=== PATIENT | female | born 1945 | race American Indian/Alaskan Native ===

== ENCOUNTER 2017-06-12 09:28 | Emergency (ER) | payer MEDICARE ==
[2017-06-12] MEDS ORDERED: PERCOCET 5/325 PO ONE (11:54)
--- NOTE | 2017-06-12 11:57 | Emergency Department Report ---
ED Back Pain/Injury HPI - General Chief Complaint: Back Pain/Injury Stated Complaint: BACK PAIN Source: patient, EMS Limitations: Physical Limitation - History of Present Illness Initial Comments: patient brought to er with low back pain, 03/11, with radiation to buttocks. patient has chronic back pain s/p surgery, ran out her percocet which usually helps her pain. she has an appointment next week to have percocet refill by hoang manzo MD Complaint: back pain -: Gradual Similar Symptoms Previously: Yes Place: home Radiation: buttocks Severity: mild Severity scale (0 -10): 4 Quality: sharp Consistency: intermittent Improves With: supine Worsens With: none Context: while lifting Associated Symptoms: denies other symptoms Treatments Prior to Arrival: prescription analgesics (home percocet) - Related Data Previous Rx's Medication Instructions Recorded Last Taken Type methOCARBAMOL [Robaxin TAB] 500 mg PO Q6H PRN #30 tablet 06/12/17 Unknown Rx Allergies Allergy/AdvReac Type Severity Reaction Status Date / Time No Known Allergies Allergy Unverified 06/12/17 09:48 ED Review of Systems ROS: Stated complaint: BACK PAIN Other details as noted in HPI Comment: All other systems reviewed and negative Endocrine: no symptoms reported Musculoskeletal: as per HPI, back pain ED Past Medical Hx - Past Medical History Previous Medical History?: Yes Hx Hypertension: Yes Additional medical history: high cholesterol - Surgical History Past Surgical History?: Yes Hx Breast Surgery: Yes (right breast) - Social History Smoking Status: Never Smoker Substance Use Type: None - Medications Home Medications: Home Medications Medication Instructions Recorded Confirmed Last Taken Type methOCARBAMOL [Robaxin TAB] 500 mg PO Q6H PRN #30 tablet 06/12/17 Unknown Rx ED Physical Exam - General Limitations: Physical Limitation General appearance: alert - Head Head exam: Present: atraumatic - Eye Eye exam: Present: normal appearance - ENT ENT exam: Present: normal exam - Neck Neck exam: Present: normal inspection - Respiratory Respiratory exam: Present: normal lung sounds bilaterally - Cardiovascular Cardiovascular Exam: Present: regular rate - GI/Abdominal GI/Abdominal exam: Present: soft - Rectal Rectal exam: Present: deferred - Extremities Exam Extremities exam: Present: normal inspection - Back Exam Back exam: Present: normal inspection - Neurological Exam Neurological exam: Present: alert, altered, oriented X3 - Psychiatric Psychiatric exam: Present: normal affect, normal mood - Skin Skin exam: Present: warm ED Course Vital Signs 06/12/17 06/12/17 06/12/17 11:30 11:35 11:41 Temperature Respiratory Rate Blood Pressure 148/89 148/89 O2 Sat by Pulse 97 97 97 Oximetry 06/12/17 06/12/17 06/12/17 11:45 11:51 11:55 Temperature Respiratory Rate Blood Pressure 139/82 139/82 139/82 O2 Sat by Pulse 98 97 98 Oximetry 06/12/17 12:07 Temperature 98.2 F Respiratory 16 Rate Blood Pressure O2 Sat by Pulse Oximetry - Reevaluation(s) Reevaluation #1: 06/12/17 11:57 reevaluated at 1158 by hoang huston Critical care attestation.: If time is entered above; I have spent that time in minutes in the direct care of this critically ill patient, excluding procedure time. ED Disposition Clinical Impression: Acute exacerbation of chronic low back pain Disposition: - TO HOME OR SELFCARE Is pt being admited?: No Does the pt Need Aspirin: No Condition: Stable Additional Instructions: f/u with pcp Prescriptions: methOCARBAMOL [Robaxin TAB] 500 mg PO Q6H PRN #30 tablet PRN Reason: Pain, Moderate (4-6) Referrals: PRIMARY CARE,MD [Primary Care Provider] - 3-5 Days Time of Disposition: 12:12 Print Language: YORUBA
[2017-06-12 12:11] VITALS: BP 137/80
== END 2017-06-12 12:39 | disposition home or self-care (01) ==
LOC: ED 09:28
DX: M54.5 Low back pain (principal); G89.29 Other chronic pain; I10 Essential (primary) hypertension; E78.00 Pure hypercholesterolemia, unspecified; X50.0XXA Overexertion from strenuous movement or load, initial encounter; Y93.89 Activity, other specified; Y99.9 Unspecified external cause status; Y92.89 Other specified places as the place of occurrence of the external cause
CPT/HCPCS: 99283